=== PATIENT | male | born 1975 | race American Indian/Alaskan Native ===

== ENCOUNTER 2018-04-16 09:14 | Emergency (ER) | payer SELFPAY ==
[2018-04-16 09:37] VITALS: BP 136/93
--- NOTE | 2018-04-16 11:29 | Emergency Department Report ---
Chief Complaint: Extremity Problem,Nontraumatic Stated Complaint: NUMBNESS RIGHT LEG/LEFT ARM Time Seen by Provider: 04/16/18 11:22 - HPI History of Present Illness: 43 year-old male presents the emergency department with complaint of a 2 month history of some decreased sensation, and discomfort to the right lower extremity, worse in the calf, as well as the left upper extremity around the lower bicep. In the arm the patient also feels a "knot." He denies any past medical history. He has not taken anything for her symptoms. Presentation. He denies any headache, vision change, slurred speech or any other neurological deficits. - ROS Review of Systems: Positive for decreased sensation, left arm and right leg discomfort Negative for headache, vision change, slurred speech - Exam Vital Signs: Vital Signs 04/16/18 09:33 Temperature 97.8 F Pulse Rate 67 Respiratory 16 Rate Blood Pressure 136/93 O2 Sat by Pulse 98 Oximetry Physical Exam: Patient does not appear to have true numbness in either of his areas of complaint but says that he feels decreased when compared to the contralateral side. Heart and lungs sounds are normal to auscultation. Cranial nerves intact. MSE screening note: Focused history and physical exam performed. Due to findings the following was ordered: Patient will have a CBC, BMP and thyroid. He will have a right lower extremity and left upper extremity venous Doppler to rule out clots ED Disposition for MSE Condition: Stable Referrals: PRIMARY CARE, [Primary Care Provider] - 3-5 Days
--- NOTE | 2018-04-17 18:03 | Vascular Lab Report ---
LEFT UPPER EXTREMITY VENOUS DUPLEX: REASON FOR EXAM: Pain and swelling of the left upper extremity COMMENTS ON THE LEFT: All arm veins visualized are freely compressible without evidence of internal echogenicity. The subclavian and internal jugular veins are free of thrombus. Flow is spontaneous and phasic throughout. COMMENTS ON THE RIGHT: A limited study of the jugular and subclavian veins shows no evidence of thrombus. IMPRESSION: No evidence of acute or chronic deep venous thrombosis in the left upper extremity.
== END 2018-04-16 12:35 | disposition left against medical advice (07) ==
LOC: ED 09:14
DX: M79.89 Other specified soft tissue disorders (principal); Z53.21 Procedure and treatment not carried out due to patient leaving prior to being seen by health care provider